=== PATIENT | female | born 1965 | race Caucasian/White ===

== ENCOUNTER → 2016-11-30 | Outpatient (CLI) | payer SELFPAY | END | disposition home or self-care (01) | LOC: CDC 11:04 | DX: Z01.810 Encounter for preprocedural cardiovascular examination (principal); C50.911 Malignant neoplasm of unspecified site of right female breast | CPT/HCPCS: 93000 ==

== ENCOUNTER 2016-12-12 06:47 | Day surgery (SDC) | payer SELFPAY ==
[~2016-12-12] VITALS: Ht 160 cm; Wt 65.0 kg
[~2016-12-12 06:47] MED LIST: TRANSDERM-SCO1 PATCH TD; XANAX0.25 MG PO
[2016-12-12 07:18] VITALS: BP 97/62
[2016-12-12 19:35] VITALS: BP 105/55
[2016-12-12 23:37] VITALS: BP 98/52
[2016-12-13 03:48] VITALS: BP 95/52
[2016-12-13 07:05] VITALS: BP 97/47
[2016-12-13 07:22] VITALS: BP 97/47
[2016-12-13 10:13] VITALS: BP 93/50
[2016-12-13 14:50] VITALS: BP 99/52
== END 2016-12-13 17:50 | disposition home or self-care (01) ==
LOC: SDC 06:47 → NUC 08:00 → 2SOUTH 16:24 → 2EAST 20:03
PROC: 0HBT0ZZ Excision of Right Breast, Open Approach (ICD-10-PCS; principal; 2016-12-12)
PROC: 07B50ZZ Excision of Right Axillary Lymphatic, Open Approach (ICD-10-PCS; principal; 2016-12-12)
PROC: 0H0 Skin and Breast, Alteration (ICD-10-PCS; principal; 2016-12-12)
DX: C50.911 Malignant neoplasm of unspecified site of right female breast (principal); C77.3 Secondary and unspecified malignant neoplasm of axilla and upper limb lymph nodes; Z17.0 Estrogen receptor positive status [ER+]; K21.9 Gastro-esophageal reflux disease without esophagitis
CPT/HCPCS: 78195; 78999; 88305; 88309; 88331; 88342 TC; A9541; C1789; G0378; J0131; J0330; J0690; J1100; J1170; J2175; J2250; J2405; J2765; J3010; J7050; P9045; S0020

== ENCOUNTER → 2016-12-27 | Outpatient (CLI) | payer SELFPAY | END | disposition home or self-care (01) | LOC: NUC 10:52 | DX: C79.89 Secondary malignant neoplasm of other specified sites (principal); C50.911 Malignant neoplasm of unspecified site of right female breast | CPT/HCPCS: 78306; A9503 ==

== ENCOUNTER → 2016-12-31 | Outpatient (CLI) | payer SELFPAY | END | disposition home or self-care (01) | LOC: RAD 11:49 | DX: C50.911 Malignant neoplasm of unspecified site of right female breast (principal); C79.9 Secondary malignant neoplasm of unspecified site; N63 Unspecified lump in breast | CPT/HCPCS: 71260; 74177 ==

== ENCOUNTER 2017-01-23 07:51 | Day surgery (SDC) | payer SELFPAY ==
[~2017-01-23] VITALS: Ht 160 cm; Wt 63.0 kg
== END 2017-01-23 10:35 | disposition home or self-care (01) ==
LOC: CATH 07:51
DX: I87.8 Other specified disorders of veins (principal); C50.911 Malignant neoplasm of unspecified site of right female breast; Z82.49 Family history of ischemic heart disease and other diseases of the circulatory system; Z82.3 Family history of stroke; Z84.1 Family history of disorders of kidney and ureter; Z83.3 Family history of diabetes mellitus
CPT/HCPCS: C1751; C1894; J0690; J1644; J2250; J3010; S0020

== ENCOUNTER → 2017-06-21 | Outpatient (CLI) | payer OTHER ==
[~2017-06-21] MED LIST changes: +CLARITIN,ALAVAR10 MG PO; +COMPAZINE10 MG PO; +GLYCOTROL CAPS1 EACH PO; +IRON18 MG PO; +MULTI-DAY VITA1 EACH PO
== END | disposition home or self-care (01) ==
LOC: AMB 10:53
DX: Z45.2 Encounter for adjustment and management of vascular access device (principal); I87.8 Other specified disorders of veins; Z92.21 Personal history of antineoplastic chemotherapy

== ENCOUNTER 2017-11-07 10:03 | Day surgery (SDC) | payer SELFPAY ==
[~2017-11-07] VITALS: Ht 160 cm; Wt 66.6 kg
[~2017-11-07 10:03] MED LIST changes: +ESSENTIAL WOMA1 EAC1 PO; -MULTI-DAY VITA1 EACH PO; +PRIMROSE PO; +VITAMIN B-1000 MCG/1 PO; +VITAMIN D400 UNIT PO; +VITAMIN E400 UNIT PO
[2017-11-07 10:25] VITALS: BP 100/53
[2017-11-07 10:27] VITALS: BP 100/53
[2017-11-07] MEDS ORDERED: XANAX0.5 MG PO (10:38)
[2017-11-07 16:10] VITALS: BP 100/58
[2017-11-07 17:05] VITALS: BP 100/53
== END 2017-11-07 17:17 | disposition home or self-care (01) ==
LOC: SDC 10:03 → 2SOUTH 11:37 → SDC 13:13 → EDSTATUS 13:13 → SDC 16:20
PROVIDERS: Surgery Plastic and Reconstructive Surgery
DX: N65.0 Deformity of reconstructed breast (principal); Z85.3 Personal history of malignant neoplasm of breast; Z92.21 Personal history of antineoplastic chemotherapy
CPT/HCPCS: 84703; J0131; J0330; J0690; J1100; J1170; J2175; J2250; J2405; J2765; J3010; Q0175

== ENCOUNTER 2018-06-09 09:06 | Day surgery (SDC) | payer OTHER ==
[~2018-06-09] VITALS: Ht 157.5 cm; Wt 67.1 kg
[~2018-06-09 09:06] MED LIST changes: +HERBAL SUPPLEMENT PO; -IRON18 MG PO; +MAG-AMIDE SR 51 EACH PO; +TYLENOL EXTRA500 MG PO; +ULTRAM50 MG PO; -VITAMIN D400 UNIT PO; +XANAX0.5 MG PO
[2018-06-09 09:52] VITALS: BP 108/61
[2018-06-09] MEDS ORDERED: MOTRIN600 MG PO (13:19)
[2018-06-09 15:48] VITALS: BP 119/59
[2018-06-09 17:19] VITALS: BP 120/56
== END 2018-06-09 17:48 | disposition home or self-care (01) ==
LOC: SDC 09:06 → ENRESERV 15:01 → CANRESERV 15:01 → ENRESERV 15:03 → SDC 15:33 → ENRESERV 16:09 → CANRESERV 16:09 → SDC 17:48
PROC: 0UN14ZZ Release Left Ovary, Percutaneous Endoscopic Approach (ICD-10-PCS; principal; 2018-06-09)
PROC: 0UN64ZZ Release Left Fallopian Tube, Percutaneous Endoscopic Approach (ICD-10-PCS; principal; 2018-06-09)
PROC: 0UT64ZZ Resection of Left Fallopian Tube, Percutaneous Endoscopic Approach (ICD-10-PCS; principal; 2018-06-09)
PROC: 0UT14ZZ Resection of Left Ovary, Percutaneous Endoscopic Approach (ICD-10-PCS; principal; 2018-06-09)
PROC: 0UDB7ZX Extraction of Endometrium, Via Natural or Artificial Opening, Diagnostic (ICD-10-PCS; principal; 2018-06-09)
PROC: 0DNE4ZZ Release Large Intestine, Percutaneous Endoscopic Approach (ICD-10-PCS; principal; 2018-06-09)
PROC: 0JDM3ZZ Extraction of Left Upper Leg Subcutaneous Tissue and Fascia, Percutaneous Approach (ICD-10-PCS; 2018-06-09)
PROC: 0HRT37Z Replacement of Right Breast with Autologous Tissue Substitute, Percutaneous Approach (ICD-10-PCS; 2018-06-09)
PROC: 0JDL3ZZ Extraction of Right Upper Leg Subcutaneous Tissue and Fascia, Percutaneous Approach (ICD-10-PCS; 2018-06-09)
DX: Z40.02 Encounter for prophylactic removal of ovary(s) (principal); N65.0 Deformity of reconstructed breast; N93.9 Abnormal uterine and vaginal bleeding, unspecified; K66.0 Peritoneal adhesions (postprocedural) (postinfection); Z85.3 Personal history of malignant neoplasm of breast; Z53.09 Procedure and treatment not carried out because of other contraindication; Z92.21 Personal history of antineoplastic chemotherapy; Z92.3 Personal history of irradiation; Z90.49 Acquired absence of other specified parts of digestive tract; G62.0 Drug-induced polyneuropathy; T45.1X5S Adverse effect of antineoplastic and immunosuppressive drugs, sequela; K21.9 Gastro-esophageal reflux disease without esophagitis; D50.9 Iron deficiency anemia, unspecified; Z82.3 Family history of stroke; Z82.49 Family history of ischemic heart disease and other diseases of the circulatory system; Z84.1 Family history of disorders of kidney and ureter; Z80.49 Family history of malignant neoplasm of other genital organs; Z91.048 Other nonmedicinal substance allergy status
CPT/HCPCS: 88305; J0131; J0330; J0690; J2250; J2405; J2710; J2765; J3010; J7643; Q0175